=== PATIENT | male | born 1955 | race Caucasian/White ===

== ENCOUNTER → 2017-09-01 08:52 | Day surgery (SDC) | payer BC ==
[~2017-09-01] VITALS: Ht 177.8 cm; Wt 93.2 kg
[2017-09-01 08:19] LABS: BASOPHILS 0.6 % (0-2); EOSINOPHILS 2.1 % (0-7); HEMATOCRIT 44.1 % (42.0-54.0); HEMOGLOBIN 15.5 g/dL (13.5-17.5); IMMATURE GRANULOCYTES 0.2 % (0-5); LYMPHOCYTES 29.1 % (15-50); MCH 32.8 pg (26.0-34.0); MCHC 35.1 g/dL (31.0-37.0); MCV 93.2 fL (80.0-100.0); MEAN PLATELET VOLUME 9.6 fL (7.4-10.4); MONOCYTES 12.2 % (2-11); NEUTROPHILS 55.8 % (40-80); PLATELET COUNT 184 10x3/uL (130-400); RBC 4.73 10x6/uL (4.20-6.10); RDW 12.2 % (11.5-14.5); WBC 5.3 10x3/uL (4.8-10.8)
[2017-09-01 08:25] LABS: CALC OSMOLALITY 279 mosm/kg (275-300); CALCIUM 8.7 mg/dL (8.5-10.1); CARBON DIOXIDE 27.4 mmol/L (21.0-32.0); CHLORIDE - SERUM 105 mmol/L (98-107); GLUCOSE 114 mg/dL (74-106); POTASSIUM - SERUM 4.1 mmol/L (3.5-5.1); SODIUM 138 mmol/L (136-145); UREA NITROGEN 21 mg/dL (7-18); eGFR NON AFRICAN AMERICAN 81 mL/min (90-120)
[2017-09-01 08:28] LABS: INR 0.95 (0.85-1.17); PROTIME 12.3 SECONDS (11.6-15.0)
[2017-09-01 08:29] LABS: APTT 25.8 SECONDS (22.8-39.4)
[2017-09-01 09:07] VITALS: Ht 177.8 cm; Wt 93.2 kg
== END | disposition home or self-care (01) ==
LOC: D.SP 07:31 → D.CT 07:31 → D.OPS 08:52 → D.SP 08:52 → D.CT 10:00
PROVIDERS: Specialist
DX: R59.0 Localized enlarged lymph nodes (principal); Z01.812 Encounter for preprocedural laboratory examination